=== PATIENT | female | born 1955 | race Caucasian/White ===

== ENCOUNTER 2017-07-14 19:06 | Inpatient (IN) | payer OTHER ==
[~2017-07-14] VITALS: Ht 152.4 cm; Wt 113.4 kg
[~2017-07-14 19:06] MED LIST: GABAPENTIN400 MG PO; INTEGRA PLUS C1 EACH PO; LISINOPRIL20 MG PO; MOTRIN IB200 MG PO; OXYC1TAB9 PO; PANADOL EXTRA500 MG PO; PERCOCET 10-321 EACH PO; PROTONIX40 MG PO; RELAFEN PO; SYNTHROID75 MCG PO; TOPROL XL50 M1 PO; VITAMIN D32000 UNI1 PO; XARELTO10 MG PO
== END 2017-07-20 13:07 | disposition home health service (06) | DRG 603 ==
LOC: ER 19:06 → SEC-K 07-15 11:34 → SURG 07-15 11:34
DX: L03.115 Cellulitis of right lower limb (principal); L76.82 Other postprocedural complications of skin and subcutaneous tissue; Y83.8 Other surgical procedures as the cause of abnormal reaction of the patient, or of later complication, without mention of misadventure at the time of the procedure; Y92.098 Other place in other non-institutional residence as the place of occurrence of the external cause; I10 Essential (primary) hypertension; E03.8 Other specified hypothyroidism; Z96.651 Presence of right artificial knee joint; M17.11 Unilateral primary osteoarthritis, right knee